=== PATIENT | female | born 1975 | race Caucasian/White ===

== ENCOUNTER 2024-07-07 08:30 | Day surgery (SDC) | payer BC ==
[2024-07-04 10:22] LABS: BASOPHILS # (AUTO) 0.1 X10'3 (0-0.2); EOSINOPHILS # (AUTO) 0.2 X10'3 (0-0.9); EOSINOPHILS % (AUTO) 2.1 % (0-6); LYMPHOCYTES # (AUTO) 2.8 X10'3 (1.1-4.8); LYMPHOCYTES % (AUTO) 36.2 % (21-51); MEAN CORPUSCULAR HEMOGLOBIN 31.1 PG (27.0-31.0); MEAN CORPUSCULAR HGB CONC 33.2 g/dL (33.0-36.5); MEAN CORPUSCULAR VOLUME 93.8 FL (78-98); MEAN PLATELET VOLUME 7.7 FL (7.4-10.4); MONOCYTES # (AUTO) 0.4 X10'3 (0-0.9); MONOCYTES % (AUTO) 5.3 % (2-12); NEUTROPHILS # (AUTO) 4.2 X10'3 (1.8-7.7); NEUTROPHILS % (AUTO) 55.4 % (42-75); PRE OP HEMATOCRIT 45.1 % (35.0-45.0); PRE OP PLATELET COUNT 265 X10'3 (140-440); PRE OP WHITE BLOOD COUNT 7.6 10'3 (4.8-10.8); RED BLOOD COUNT 4.81 X10'6 (4.20-5.60)
[2024-07-04 10:33] LABS: ALBUMIN 3.8 G/DL (3.4-5.0); ALBUMIN/GLOBULIN RATIO 1.1 (1.1-1.5); ALKALINE PHOSPHATASE 90 IU/L (46-116); BLOOD UREA NITROGEN 14 MG/DL (7-18); BUN/CREATININE RATIO 18.4 (10.0-20.0); CALCIUM 8.7 MG/DL (8.5-10.1); CHLORIDE 110 MMOL/L (99-107); CREATININE 0.76 MG/DL (0.40-0.90); PRE OP ALT 22 U/L (30-65); PRE OP ANION GAP 7 (8-16); PRE OP AST 15 U/L (10-37); PRE OP BILIRUB, TOTAL 0.3 MG/DL (0.0-1.0); PRE OP GLUCOSE 90 MG/DL (70-104); PRE OP SODIUM 143 MMOL/L (135-145); TOTAL CARBON DIOXIDE 25.8 MMOL/L (24-32); TOTAL PROTEIN 7.2 G/DL (6.4-8.2); eGFR 81 ML/MIN
[2024-07-07] VITALS (11 sets, daily range): BP systolic 132–161; BP diastolic 70–95; PULSE 63–86; RESP 10–16; TEMP 97.7; O2SAT 93–100
[~2024-07-07] VITALS: Ht 167.6 cm; Wt 96.0 kg
[~2024-07-07 08:30] MED LIST: LEVO137T19 PO; LOSA25TA41 PO
[2024-07-07] MEDS: ceFAZolin 2gm in dextrose, iso 50 ML IV ONE (09:35)
[2024-07-07] MEDS: famotidine 20mg tablet PO ONE (09:35)
[2024-07-07] MEDS: ringers solution, lacted 1,000 ML IV SCH (09:35)
[2024-07-07] MEDS: scopolamine 1MG/72H patch 1 PATCH PATCH.TD.3 TD SCH (09:59)
[2024-07-07] MEDS ORDERED: morphine 2 MG/ML inj. syringe IV PRN (10:05)
[2024-07-07] MEDS ORDERED: ringers solution, lacted 1,000 ML IV SCH (10:05)
[2024-07-07] MEDS ORDERED: morphine 4 MG/ML inj SYRINge IV PRN (10:05)
[2024-07-07] MEDS ORDERED: meperidine/PF 25mg/ml syringe IV PRN ×3 (10:05)
[2024-07-07] MEDS ORDERED: LIDOcaine 1% (10mg/ml)w/preservative inj. 20ml MDV ONE (10:06)
[2024-07-07] MEDS ORDERED: BUPIVAcaine/PF 2.5mg/ml (0.25%) 10ml vial ONE (10:07)
[2024-07-07] MEDS ORDERED: fentaNYL/PF 50MCG/1 ML 2ML syringe ONE (10:11)
[2024-07-07] MEDS ORDERED: midazolam 1 mg/ML 2ml injection ONE (10:11)
[2024-07-07] MEDS ORDERED: dexamethasone sod phosphate 4mg/ml inj. ONE (10:14)
[2024-07-07] MEDS ORDERED: sevoflurane 250ml liquid IH ONE (10:14)
[2024-07-07] MEDS ORDERED: propofol inj 20 ML IV ONE (10:14)
[2024-07-07] MEDS ORDERED: ondansetron/PF 4mg/2ml inj ONE (11:25)
[2024-07-07] MEDS: ondansetron/PF 4mg/2ml inj IV PRN (12:17)
[2024-07-07] MEDS: proCHLORperazine 10 MG/2 ml inj IV PRN (12:34)
[2024-07-07] MEDS ORDERED: ondansetron/PF 4mg/2ml inj IV ONE (13:00)
[2024-07-07] MEDS: ondansetron/PF 4mg/2ml inj ONE (13:10)
== END 2024-07-07 13:23 | disposition home or self-care (01) ==
LOC: PAS 08:30
PROVIDERS: ATTEND Surgery
DX: R92.8 Other abnormal and inconclusive findings on diagnostic imaging of breast (principal); N60.12 Diffuse cystic mastopathy of left breast; N62 Hypertrophy of breast; N60.11 Diffuse cystic mastopathy of right breast; I10 Essential (primary) hypertension; Z79.899 Other long term (current) drug therapy; Z90.710 Acquired absence of both cervix and uterus
CPT/HCPCS: 19301; 36415; 80053; 82948; 85025; J0690; J0780; J1100; J2250; J2405; J2704; J3010; J3490; J7030; J7120; Z7506; Z7508; Z7512; A4215; A4618; A6449; A7000